=== PATIENT | female | born 1985 | race American Indian/Alaskan Native ===

== ENCOUNTER 2018-06-22 15:03 | Outpatient (CLI) | payer OTHER ==
[2018-06-23] MEDS ORDERED: CEFUROXIME500 MG PO (08:13)
[2018-06-23] MEDS ORDERED: FEOSOL325 MG PO (08:13)
== END 2018-06-23 10:38 | disposition home or self-care (01) ==
LOC: OBS/DEL 15:03
DX: O23.42 Unspecified infection of urinary tract in pregnancy, second trimester (principal); O99.012 Anemia complicating pregnancy, second trimester; D64.89 Other specified anemias; O60.02 Preterm labor without delivery, second trimester; Z34.02 Encounter for supervision of normal first pregnancy, second trimester

== ENCOUNTER 2018-10-22 16:26 | Outpatient (CLI) | payer OTHER ==
[~2018-10-22 16:26] MED LIST: CEFUROXIME500 MG PO; FEOSOL325 MG PO
== END 2018-10-23 08:54 | disposition home or self-care (01) ==
LOC: OBS/DEL 16:26
DX: O48.0 Post-term pregnancy (principal); Z34.03 Encounter for supervision of normal first pregnancy, third trimester

== ENCOUNTER 2018-10-23 19:12 | Inpatient (IN) | payer OTHER ==
[~2018-10-23] VITALS: Ht 175.3 cm; Wt 84.4 kg
== END 2018-10-28 14:36 | disposition home or self-care (01) | DRG 788 ==
LOC: OB/GYN 19:12 → LDR 19:12 → O/R 10-24 18:30 → OB/GYN 10-24 20:50
PROVIDERS: ADMIT Obstetrics & Gynecology
PROC: 3E033VJ Introduction of Other Hormone into Peripheral Vein, Percutaneous Approach (ICD-10-PCS; 2018-10-23)
PROC: 4A1HXCZ Monitoring of Products of Conception, Cardiac Rate, External Approach (ICD-10-PCS; 2018-10-23)
PROC: 10D00Z1 Extraction of Products of Conception, Low, Open Approach (ICD-10-PCS; principal; 2018-10-24 16:00)
DX: O62.0 Primary inadequate contractions (principal); Z3A.40 40 weeks gestation of pregnancy; Z37.0 Single live birth